=== PATIENT | female | born 1955 ===

== ENCOUNTER 2020-10-26 10:00 | Inpatient (IN) | payer OTHER ==
[~2020-10-26] VITALS: Ht 152.4 cm; Wt 76.2 kg
[2020-10-30] MEDS ORDERED: IRBESARTAN-HCT1 EAC1 PO (12:04)
[2020-10-30] MEDS ORDERED: FOLIC AC PO (12:05)
[2020-10-30] MEDS ORDERED: SYNTHROID100 MCG PO (12:06)
[2020-10-30] MEDS ORDERED: METHOTREXATE2.5 MG PO (12:06)
[2020-10-30] MEDS ORDERED: FORTAMET500 MG PO (12:06)
[2020-10-30] MEDS ORDERED: NORVASC5 MG PO (12:07)
[2020-10-30] MEDS ORDERED: METHOTREXATE2.5 MG (12:08)
[2020-11-02] MEDS ORDERED: ROSUVASTATIN CA20 MG (14:14)
[2020-11-02] MEDS ORDERED: ADVIL200 M1 (14:14)
[2020-11-02] MEDS ORDERED: EZETIMIBE10 MG (14:14)
[2020-11-02] MEDS ORDERED: FOLIC ACID0.8 M1 (14:15)
== END 2020-11-03 10:46 | disposition home or self-care (01) | DRG 743 ==
LOC: EDSTATUS 10-30 09:30 → ADM 10-30 09:30 → O/R 11-01 07:00 → OB/GYN 11-01 07:00 → SURH 11-01 09:30 → OB/GYN 11-01 15:25
PROVIDERS: Surgery; ADMIT Obstetrics & Gynecology Gynecologic Oncology; ATTEND Obstetrics & Gynecology Gynecologic Oncology
PROC: 0DBU0ZZ Excision of Omentum, Open Approach (ICD-10-PCS; 2020-11-01)
PROC: 07BC0ZX Excision of Pelvis Lymphatic, Open Approach, Diagnostic (ICD-10-PCS; 2020-11-01)
PROC: 0DTJ0ZZ Resection of Appendix, Open Approach (ICD-10-PCS; 2020-11-01)
PROC: 0UT20ZZ Resection of Bilateral Ovaries, Open Approach (ICD-10-PCS; principal; 2020-11-01 10:30)
PROC: 0UT70ZZ Resection of Bilateral Fallopian Tubes, Open Approach (ICD-10-PCS; 2020-11-01 10:30)
DX: D27.1 Benign neoplasm of left ovary (principal); D27.0 Benign neoplasm of right ovary; R19.07 Generalized intra-abdominal and pelvic swelling, mass and lump; R97.1 Elevated cancer antigen 125 [CA 125]; I10 Essential (primary) hypertension; Z90.710 Acquired absence of both cervix and uterus